=== PATIENT | male | born 1950 | race Caucasian/White ===

== ENCOUNTER → 2018-10-27 | Outpatient (CLI) | payer MEDICARE, OTHER ==
--- NOTE | 2018-10-27 15:43 | PCVCIMAG ---
APPROVED REPORT Study performed: 10/27/2018 14:39:57 Exam: Stress Echocardiogram Indication: Hyperlipidemia Patient Location: Echo lab Stress Nurse: Shante Adair RN Room #: 2 Status: routine Ht: 6 ft 2 in HR: 63 bpm BP: 136/76 mmHg Rhythm: NSR Medical History Medical History: Hyperlipidemia Cardiac Risk Factors: Hyperlipidemia, FHX of CAD Previous Cardiac Procedures: none Pretest Chest Pain Characteristics: No chest pain Exercise History: Physically active Procedure The patient underwent an Exercise Stress Test using the Phyllis Protocol. Blood pressure, heart rate, and EKG were monitored. An Echocardiogram was performed by energy conservation technician in four stages in quad fashion. At peak stress, four selected images were obtained and placed side by side with resting images for comparison. Stress Test Details Stress Test: Exercise stress testing was performed using a Phyllis protocol. HR Resting HR: 63 bpmMax Heart Rate (APMHR): 151 bpm Max HR Achieved: 146 bpmTarget HR (85% APMHR): 128 bpm % of APMHR: 96 Recovery HR: 80 bpm HR response to stress: Normal HR response to stress BP Resting BP: 136/76 mmHg Max BP: 166/82 mmHg Recovery BP: 154/74 mmHg BP response to stress: Normal blood pressure response to stress. ECG Resting ECG: Sinus Rhythm Stress ECG: Sinus Rhythm, NSSTT changes ST Change: Non-ischemic Arrhythmia: Rare PVC Recovery ECG: Sinus Rhythm Recovery ST Change: Non-ischemic Recovery Arrhythmia: None Clinical Reason for Termination: Maximal effort Stress Symptoms: fatigue Exercise duration: 9 min 00 sec Highest Stage Achieved: Stage 3: 3.4 mph at 14% grade. Exercise capacity: 10.1 METs Overall Exercise Capacity for Age: Normal Angina Score: None No complications. Stress ECG Conclusion The patient exercised according to the PHYLLIS protocol for 9:00 mins; achieving a work level of 10.1 METS. The resting heart rate of 63 bpm chuy to a maximum heart rate of 146 bpm. This value represent 96% of the maximal, age-predicted heart rate. The resting blood pressure of 136/76 mmHg, chuy to a maximum blood pressure of 166/82 mmHg. The exercise test was stopped due to fatigue . Pre-Stress Echo The resting Echocardiogram showed normal left ventricular contractility with an estimated Ejection Fraction of about 55-60%. Normal wall motion in all segments on baseline images. Post-Stress Echo The stress Echocardiogram showed normal left ventricular contractility with an estimated Ejection Fraction of about 65-70%. Normal augmentation of wall motion in all segments on post stress images. Clinical No clinical or ECG evidence for ischemia. Conclusion Clinical Response: Non-ischemic Exercise Capacity: Average Stress ECG Response: Non-ischemic Stress Echo Images: Non-ischemic No clinical, EKG or echocardiographic evidence for ischemia. No echocardiographic evidence for exercise induced ischemia. Normal stress echocardiogram with maximal exercise stress. No prior study available for comparison. <Conclusion> No clinical, EKG or echocardiographic evidence for ischemia. No echocardiographic evidence for exercise induced ischemia. Normal stress echocardiogram with maximal exercise stress.
== END | disposition home or self-care (01) ==
LOC: PCVCIMAG 14:15
PROVIDERS: ATTEND Family Medicine
DX: E78.5 Hyperlipidemia, unspecified (principal)
CPT/HCPCS: 93325; 93351